=== PATIENT | female | born 1975 | race African-American/Black ===

== ENCOUNTER 2023-07-11 07:15 | Day surgery (SDC) | payer MEDICAID ==
[~2023-07-11] VITALS: Ht 170.2 cm; Wt 83.9 kg
[~2023-07-11 07:15] MED LIST: ASPI325T4 PO; ATOR20TA50 PO; CHOL200010 PO; HYDR-3682 PO; HYDR12.59 PO; IBUP-1456 PO; METO25TA93 PO
[2023-07-11] MEDS ORDERED: IODIXANOL 320MG/ML 100ML BTL IV ONE (07:50)
[2023-07-11] MEDS ORDERED: IOHEXOL 350 MG/ML 100ML IJ ONE (07:50)
[2023-07-11] MEDS ORDERED: LIDOCAINE 2%HCL (LOCAL ANESTH.) INJ 20ML MDV ONE (07:50)
[2023-07-11] MEDS ORDERED: HEPARIN SODIUM (PORCINE) 5000 UNITS/ML 1ML VIAL ONE (08:08)
[2023-07-11] MEDS ORDERED: fentaNYL CITRATE 100 MCG/2 ML VL ONE (08:08)
[2023-07-11] MEDS ORDERED: VERAPAMIL 2.5MG/ML INJ 2ML VIAL IV ONE (08:08)
[2023-07-11] MEDS ORDERED: ANGIOMAX 250 MG VIAL IV ONE (08:08)
[2023-07-11] MEDS ORDERED: SODIUM CHL 0.9% 50 ML ONE (08:09)
[2023-07-11] MEDS ORDERED: MIDAZOLAM HCL 2MG/2ML 2ml VIAL (1mg/ml) ONE (08:09)
[2023-07-11] MEDS ORDERED: ASPI81CH74 PO (10:07)
== END 2023-07-11 11:06 | disposition home or self-care (01) ==
LOC: CATH 07:15
PROVIDERS: ATTEND Internal Medicine Cardiovascular Disease
DX: R94.39 Abnormal result of other cardiovascular function study (principal); I25.10 Atherosclerotic heart disease of native coronary artery without angina pectoris; I77.1 Stricture of artery; I10 Essential (primary) hypertension; E78.5 Hyperlipidemia, unspecified; E55.9 Vitamin D deficiency, unspecified; Z79.899 Other long term (current) drug therapy; Z98.890 Other specified postprocedural states
CPT/HCPCS: 76937; 93458; 93571; C1725; C1769; C1894; J0583; J1644; J2250; J3010; J7030; Q9967; 99152